=== PATIENT | male | born 2000 | race Caucasian/White ===

== ENCOUNTER 2018-05-13 02:21 | Emergency (ER) | payer SELFPAY ==
[~2018-05-13] VITALS: Ht 195.6 cm; Wt 122.5 kg
[2018-05-13] MEDS ORDERED: MIDAZOLAM 5 MG/5 ML (VERSED) VIAL IJ ONE (02:23)
[2018-05-13] MEDS ORDERED: fentaNYL INJECTION 100 MCG/2 ML AMP INJ ONE ×2 (02:23→02:45)
[2018-05-13] MEDS ORDERED: LACTATED RINGERS 1,000 ML BAG IV STA (02:35)
[2018-05-13] MEDS ORDERED: MIDAZOLAM 2 MG/2 ML (VERSED) VIAL INJ ONE (02:45)
--- NOTE | 2018-05-13 04:18 | ED Lower Extremity ---
General Chief Complaint: Lower Extremity Stated Complaint: L ANKLE PAIN Nursing Triage Note: fall left ankle pain/swelling. denies other injury Source: patient Exam Limitations: no limitations History of Present Illness Date Seen by Provider: May 13, 2018 Time Seen by Provider: 02:25 Initial Comments PT ARRIVES VIA POV WITH FRIEND PT C/O LEFT ANKLE INJURY STATES HE WAS WALKING OUT TO HIS TRUCK AND SLIPPED ON THE ICE AND FELL, TWISTING HIS LEFT ANKLE OCCURRED AT 0200 TONIGHT NO OTHER INJURIES NO PRIOR INJURY TO THIS FOOT/ANKLE/LEG NO PARESTHESIAS OR MOTOR DEFICITS DENIES ANY ALCOHOL USE TONIGHT AND NO HISTORY OF DRUG USE PCP: DR. SCHAFFER Allergies and Home Medications Allergies Coded Allergies: No Known Drug Allergies (Unverified , 05/13/18) Home Medications Hydrocodone Bit/Acetaminophen 1 Ea Tablet, 1 EA PO Q4H PRN for PAIN-MODERATE Prescribed by: JUDY MANZANO on 05/13/18 0424 Patient Home Medication List Home Medication List Reviewed: Yes Review of Systems Constitutional: no symptoms reported EENTM: no symptoms reported Respiratory: no symptoms reported Cardiovascular: no symptoms reported Gastrointestinal: no symptoms reported Genitourinary: no symptoms reported Musculoskeletal: see HPI Skin: other (HAS VERY MINOR /SUPERFICIAL ABRASION TO LEFT MEDIAL ANKLE) Psychiatric/Neurological: No Symptoms Reported Past Roqwthw-Rhqfes-Wiyclr Hx Patient Social History Alcohol Use: Occasionally Uses Recreational Drug Use: No Smoking Status: Current Someday Smoker Type Used: Cigarettes 2nd Hand Smoke Exposure: Yes Recent Foreign Travel: No Contact w/Someone Who Travel: No Recent Infectious Disease Expo: No Recent Hopitalizations: No Immunizations Up To Date Tetanus Booster (TDap): Less than 5yrs PED Vaccines UTD: Yes Seasonal Allergies Seasonal Allergies: No Past Medical History Surgeries: No Respiratory: No Cardiac: No Neurological: No Genitourinary: No Gastrointestinal: No Musculoskeletal: No Endocrine: No HEENT: No Cancer: No Psychosocial: No Integumentary: No Blood Disorders: No Physical Exam Vital Signs Vital Signs - First Documented 05/13/18 05/13/18 05/13/18 02:25 02:49 03:20 Temp 98.1 Pulse 86 Resp 18 B/P (MAP) 128/52 Pulse Ox 97 O2 Delivery Room Air O2 Flow Rate 2.00 Capillary Refill : Height, Weight, BMI Height: 6'5.00" Weight: 270lbs. oz. 122.589931lp; 28.12 BMI Method:Stated General Appearance: WD/WN, no apparent distress Neck: normal inspection Cardiovascular: normal peripheral pulses, regular rate, rhythm Respiratory: chest non-tender, normal breath sounds Gastrointestinal: non tender, soft Back: normal inspection, no CVA tenderness, no vertebral tenderness Hips: bilateral hip normal inspection Legs: bilateral leg normal inspection Knees: bilateral knee normal inspection Ankles: right ankle normal inspection; left ankle abrasions/lacerations (VERY MINOR/SUPERFICIAL ABRASION TO LEFT MEDIAL ANKLE--NO BLEEDING AND NO PUNCTURE WOUND), left ankle bone tenderness, left ankle deformity (MEDIALLY), left ankle limited range of motion, left ankle pain, left ankle soft tissue tenderness, left ankle swelling, left ankle other (GROSS DEFORMITIY TO ANKLE--ESPECIALLY MEDIALLY WITH GROSS LIGAMENT LAXITY, DISTAL MOTOR/SENSORY/VASCULAR INTACT. DORSALIS PEDIS AND POSTERIOR TIBIAL PULSES INTACT) Feet: bilateral foot normal inspection Neurologic/Tendon: normal sensation, normal motor functions Neurologic/Psychiatric: upper extremity surgeon II-XII nml as tested, no motor/sensory deficits, alert, normal mood/affect, oriented x 3 Skin: normal color, warm/dry Procedures/Interventions Patient Education: Explained Benefits, Explained Risks, Pt. Ack. Understanding Agreement on procedure with pt: Yes Breath Sounds per Auscultation: Clear Heart Sounds per Auscultation: Regular Airway Exam: Mouth opens >2 fingers, Neck Full Range of Motion, Visulation of Uvula NO COMPLICATIONS Re-examination EXAMINED MULTIPLE TIMES AFTER PROCEDURE NO DETERIORATION IN PT'S CONDITION AT ANY TIME. Splinting and Joint Reduction : Location: LEFT ANKLE Pre-Proc Neuro Vasc Exam: normal Post-Proc Neuro Vasc Exam: normal Reduction Attempts: 1 Pre-Procedure NV Exam: Yes post joint reduction film: joint reduced Progress MARKED LIGAMENT LAXITY, WITH NO STABILITY OF JOINT, EVEN POST REDUCTION IMPROVED ALIGNMENT ON POST REDUCTION/ POST SPLINTING Ordered: Crutches Hand-Made Type: orthoglass Splint Application: Short Leg Progress/Results/Core Measures Results/Orders My Orders Orders - JUDY MANZANO DO Ankle, Left, 3 Views (05/13/18 02:24) Saline Lock/Iv-Start (05/13/18 02:35) Conscious Sedation (05/13/18 02:35) Rt Request For Service (05/13/18 02:35) Midazolam Injection (Versed Injection) (05/13/18 02:45) Fentanyl Injection (Sublimaze Injection (05/13/18 02:45) Lactated Ringers (Lr 1000 Ml Iv Solution (05/13/18 02:35) Monitor-Rhythm Ecg Trace Only (05/13/18 02:35) Saline Lock/Iv-Start (05/13/18 02:35) Vital Signs-Conscious Sedation (05/13/18 02:35) Ankle, Left, 2 Views (05/13/18 ) Tibia/Fibula, Left, 2 Views (05/13/18 03:40) Midazolam Injection (Versed Injection) (05/13/18 04:30) Fentanyl Injection (Sublimaze Injection (05/13/18 04:30) Rx-Hydrocodone/Apap 5-325 Mg (Rx-Vicodin (05/13/18 04:30) Fentanyl Injection (Sublimaze Injection (05/13/18 04:24) Midazolam Injection (Versed Injection) (05/13/18 04:30) Medications Given in ED Current Medications Medications Dose Ordered Sig/Scott Route Start Time Stop Time Status Last Admin Dose Admin Fentanyl Citrate 50 mcg ONCE ONCE INJ 05/13/18 02:45 05/13/18 02:46 DC 05/13/18 02:53 50 MCG Fentanyl Citrate 150 mcg ONCE ONCE IVP 05/13/18 04:30 05/13/18 04:31 05/13/18 03:13 50 MCG Midazolam HCl 4 mg ONCE ONCE INJ 05/13/18 02:45 05/13/18 02:46 DC 05/13/18 02:57 4 MG Midazolam HCl 12 mg ONCE ONCE IVP 05/13/18 04:30 05/13/18 04:31 05/13/18 03:13 4 MG Vital Signs/I&O 05/13/18 05/13/18 05/13/18 05/13/18 02:25 02:49 03:00 03:10 Temp 98.1 Pulse 86 80 83 86 Resp B/P (MAP) 128/52 139/69 130/77 129/73 Pulse Ox 97 98 97 O2 Delivery Room Air Room Air Room Air Room Air 05/13/18 05/13/18 05/13/18 05/13/18 03:20 03:30 03:40 03:50 Pulse 78 76 70 70 Resp 17 19 21 20 B/P (MAP) 121/51 119/45 117/51 122/56 Pulse Ox 98 98 99 99 O2 Delivery Nasal Cannula Nasal Cannula Nasal Cannula Nasal Cannula O2 Flow Rate 2.00 2.00 2.00 2.00 05/13/18 05/13/18 05/13/18 04:00 04:10 04:20 Pulse 68 69 87 Resp 20 20 15 B/P (MAP) 116/52 115/52 117/93 Pulse Ox 100 100 100 O2 Delivery Nasal Cannula Nasal Cannula Room Air O2 Flow Rate 2.00 2.00 Progress Progress Note : Progress Note NO DETERIORATION IN PT'S CONDITION DURING ER STAY Diagnostic Imaging Comments XRAYS LEFT ANKLE--COMMINUTED DISPLACED DISTAL FIBULA FRACTURE, WITH MEDIAL DISLOCATION OF DISTAL TIBIA POST REDUCTION FILMS OF ANKLE AND TIB-FIB--IMPROVED ALIGNMENT OF DISLOCATION AND FRACTURE FRAGMENTS. NO PROXIMAL TIB-FIB FRACTURES PENDING RADIOLOGIST REVIEW Reviewed: Reviewed by Me Departure Impression Primary Impression: CLOSED LEFT ANKLE FRACTURE WITH DISLOCATION Disposition: 01 HOME, SELF-CARE Condition: Improved Departure-Patient Inst. Referrals: RASHID SCHAFFER DO (PCP/Family) Primary Care Physician EMELYN CASTRO MD Patient Instructions: Ankle Dislocation (DC), Ankle Fracture (DC), Going Up and Down Curbs or Stairs With a Walker or Crutches, How to Use Crutches, SPLINT CARE Add. Discharge Instructions: ICE TO AREA AT 20 MINUTE INTERVALS ELEVATE FOOT MUCH POSSIBLE LEAVE SPLINT IN PLACE AND DO NOT GET WET NO WEIGHT BEARING--USE CRUTCHES AT ALL TIMES FOLLOW UP WITH DR. CASTRO IN 1-2 DAYS--CALL ON Monday FOR APPOINTMENT All discharge instructions reviewed with patient and/or family. Voiced understanding. Scripts Hydrocodone Bit/Acetaminophen (LORTAB 7.5 MG TABLET) 1 Ea Tablet 1 EA PO Q4H PRN for PAIN-MODERATE MDD 6, #20 TAB Prov: JUDY MANZANO DO 05/13/18 JUDY MANZANO DO May 13, 2018 04:18
[2018-05-13 04:20] VITALS: BP 117/93
[2018-05-13] MEDS ORDERED: fentaNYL INJECTION 100 MCG/2 ML AMP IVP STA (04:24)
[2018-05-13] MEDS ORDERED: RX-HYDROCODONE/APAP 5/325 MG #4 TAB PK PO ONE (04:25)
[2018-05-13] MEDS ORDERED: MIDAZOLAM 10 MG/2 ML (VERSED) VIAL IVP ONE (04:30)
[2018-05-13] MEDS ORDERED: RX-HYDROCODONE/APAP 5/325 MG #4 TAB PK PO PRN (04:30)
[2018-05-13] MEDS ORDERED: fentaNYL INJECTION 100 MCG/2 ML AMP IVP ONE (04:30)
[2018-05-13] MEDS ORDERED: MIDAZOLAM 2 MG/2 ML (VERSED) VIAL IVP ONE (04:30)
--- NOTE | 2018-05-13 07:25 | Diagnostic Imaging Report ---
INDICATION: Fracture. TECHNIQUE: AP and lateral views of the left tibia and fibula CORRELATION STUDY: None FINDINGS: This is incomplete limited imaging of the tibia and fibula. There is partial visualization of the predominantly obliquely oriented distal fibula fracture. The alignment is near anatomic post reduction. The visualized proximal aspect of the tibia and fibula appear to be intact. Cast material is present. IMPRESSION: 1. Incomplete visualization of the tibia and fibula. There is partial visualization of comminuted distal fibular fracture appears improved in alignment post reduction. No proximal tibia and fibula fracture. Dictated by: Dictated on workstation # [id number]
--- NOTE | 2018-05-13 07:33 | Diagnostic Imaging Report ---
INDICATION: Fracture dislocation, postreduction. TECHNIQUE: 2 views left ankle 3:37 AM. CORRELATION STUDY: Same day FINDINGS: Cast material has been placed. A comminuted predominantly obliquely oriented distal fibula shaft fracture is again demonstrated. The alignment is improved post reduction and near near-anatomic. The tibiotalar relationship also appears to be significantly reduced and improved. There is suboptimal projection. IMPRESSION: 1. Interval reduction of the comminuted distal fibular fracture appearing to be near anatomic. 2. The tibiotalar relationship is somewhat distorted given projection. However, appears to be significantly improved post reduction as well. Dictated by: Dictated on workstation # [id number]
--- NOTE | 2018-05-13 08:04 | Diagnostic Imaging Report ---
INDICATION: Slipped and fell, fracture TECHNIQUE: Three views of the left ankle CORRELATION STUDY: None FINDINGS: Multipart comminuted fracture involving the distal fibula shaft. There is lateral and slight dorsal displacement of the main distal fracture fragment. Distal tibia appears to be intact. Abnormal widening of the syndesmosis. There is rather significant lateral displacement of the talus in regards to the tibia. Associated soft tissue swelling. IMPRESSION: Comminuted multipart displaced distal fibula fracture. Rather significant lateral displacement of the talus in regards to the tibia with marked widening of the medial ankle mortise. Dictated by: Dictated on workstation # [id number]
== END 2018-05-13 04:41 | disposition home or self-care (01) ==
LOC: EDUNIT# 02:21 → ER 02:22
DX: S82.832A Other fracture of upper and lower end of left fibula, initial encounter for closed fracture (principal); F17.210 Nicotine dependence, cigarettes, uncomplicated; V58.4XXA Person boarding or alighting a pick-up truck or van injured in noncollision transport accident, initial encounter; W00.2XXA Other fall from one level to another due to ice and snow, initial encounter; X50.1XXA Overexertion from prolonged static or awkward postures, initial encounter
CPT/HCPCS: 27840; 29505; 73590; 73600; 73610; 93041; 99291; 99292